=== PATIENT | male | born 1955 | race Caucasian/White ===

== ENCOUNTER 2024-11-24 12:03 | Outpatient (OUT) | payer MEDICARE, SELFPAY ==
[2024-11-24 12:34] LABS: Basophils Absolute Auto 0.1 10^3/uL (0.0-0.1); Basophils Percent Auto 0.8 % (0.2-2.0); Eosinophils Absolute Auto 0.4 10^3/uL (0.0-0.7); Eosinophils Percent Auto 4.6 % (0.9-7.0); Hematocrit 33.1 % (42.0-54.0); Hemoglobin 11.9 g/dL (14.0-18.0); Immature Granulocytes Abs Auto 0.02 10^3/uL (0.00-0.03); Immature Granulocytes Pct Auto 0.3 % (0.0-0.5); Lymphocytes Absolute Auto 1.6 10^3/uL (1.2-3.8); Lymphocytes Percent Auto 20.5 % (20.5-60.0); Mean Corpuscular Hemoglobin 34.7 pg (25.9-34.0); Mean Corpuscular Volume 96.5 fL (80.0-94.0); Monocytes Percent Auto 13.1 % (1.7-12.0); Neutrophils Absolute Auto 4.7 10^3/uL (1.4-6.5); Neutrophils Percent Auto 60.7 % (43.0-75.0); Platelet Count 460 10^3/uL (150-450); Red Blood Count 3.43 10^6/uL (4.70-6.10); Red Cell Distribution Width 12.4 % (11.0-15.0); White Blood Count 7.7 10^3/uL (4.0-11.0)
[2024-11-24 13:59] LABS: Percent Iron Saturation 14.6 %
[2024-11-24 14:05] LABS: Alanine Aminotransferase 24 U/L (16-63); Albumin Level 3.3 g/dL (3.4-5.0); Alkaline Phosphatase 70 U/L (46-116); Anion Gap 10.7; Aspartate Amino Transferase 11 U/L (15-37); BUN Creatinine Ratio 10.5; Bilirubin Total 0.4 mg/dL (0.2-1.0); Calcium 8.8 mg/dL (8.5-10.1); Carbon Dioxide 29.8 mmol/L (21.0-32.0); Chloride 95 mmol/L (98-107); Chol HDL Ratio 1.6; Cholesterol 105 mg/dL (<=200); Estimated GFR (African America >60 (>=60 mL/min/1.73m^2); Estimated GFR (Non-African Ame >60 (>=60 mL/min/1.73m^2); Globulin 3.2 g/dL; Glucose 92 mg/dL (74-106); HDL Cholesterol 64 mg/dL (40-60); Potassium 3.5 mmol/L (3.5-5.1); Sodium 132 mmol/L (136-145); Total Protein 6.5 g/dL (6.4-8.2); Triglycerides 49 mg/dL (<=150); VLDL CHOLESTEROL 9.8 mg/dL
[2024-11-25 06:12] LABS: Transferrin 269 mg/dL (177-329)
[2024-11-25 09:25] LABS: PSA, Free <0.02 ng/mL; Prostate Specific Ag <0.1 ng/mL (0.0-4.0)
== END 2024-11-24 12:04 | disposition home or self-care (01) ==
LOC: LAB 12:04
PROVIDERS: PCP Family Medicine; Visit Provider Physician Assistant
DX: Z00.00 Encounter for general adult medical examination without abnormal findings (principal); Z13.0 Encounter for screening for diseases of the blood and blood-forming organs and certain disorders involving the immune mechanism; Z13.1 Encounter for screening for diabetes mellitus; Z13.6 Encounter for screening for cardiovascular disorders; Z12.5 Encounter for screening for malignant neoplasm of prostate; K21.9 Gastro-esophageal reflux disease without esophagitis; I65.23 Occlusion and stenosis of bilateral carotid arteries; R73.03 Prediabetes; I10 Essential (primary) hypertension; E78.2 Mixed hyperlipidemia; I82.4Y9 Acute embolism and thrombosis of unspecified deep veins of unspecified proximal lower extremity; C61 Malignant neoplasm of prostate
CPT/HCPCS: 36415; 80053; 80061; 83540; 83550; 84153; 84154; 84466; 85025